=== PATIENT | female | born 1985 | race American Indian/Alaskan Native ===

== ENCOUNTER 2017-03-04 09:37 | Emergency (ER) | payer OTHER ==
[2017-03-04 09:46] VITALS: BP 132/77
[2017-03-04] MEDS ORDERED: TYLENOL PO ONE (10:48)
--- NOTE | 2017-03-04 10:49 | Emergency Department Report ---
HPI - General Chief Complaint: Sore Throat Time Seen by Provider: 03/04/17 10:46 - HPI HPI: Patient is a 31-year-old female who presents to ED complaining of throat pain 2 days. Patient describes pain as throbbing in nature, 8 out of 10 intensity, nonradiating, localized to his throat. Patient admits no appetite due to throat pain. Patient admits dry, nonproductive cough. Patient admits fever . Patient denies nausea/vomiting/abdominal pain/shortness of breath/chest pain/ headache. ED Past Medical Hx - Past Medical History Previous Medical History?: No Additional medical history: denies - Surgical History Past Surgical History?: No Additional Surgical History: denies - Social History Smoking Status: Never Smoker Substance Use Type: None - Medications Home Medications: Home Medications Medication Instructions Recorded Confirmed Last Taken Type Cyclobenzaprine [Flexeril] 10 mg PO TID PRN #15 tablet 01/21/13 Unknown Rx Hydrocodone Bit/Acetaminophen 1 each PO Q4-6H #15 tablet 01/21/13 Unknown Rx [Lortab 5-500 Tablet] Fluticasone Propionate [Flonase] 100 mcg NS QDAY #1 spray.susp 09/08/13 Unknown Rx Acetamin/Codeine 120-12Mg/5 ml 5 ml PO TID PRN #60 ml 03/04/17 Unknown Rx [Tylenol/Codeine] Ibuprofen [Motrin 800 MG tab] 800 mg PO TID PRN #30 tablet 03/04/17 Unknown Rx ED Review of Systems ROS: Stated complaint: SORE THROAT, COUGHING Other details as noted in HPI Constitutional: denies: chills, fever Eyes: denies: eye pain, eye discharge, vision change ENT: throat pain. denies: ear pain, dental pain, hearing loss, congestion Respiratory: cough. denies: shortness of breath, wheezing Cardiovascular: denies: chest pain, palpitations Endocrine: no symptoms reported Gastrointestinal: denies: abdominal pain, nausea, diarrhea Genitourinary: denies: urgency, dysuria, discharge Musculoskeletal: denies: back pain, joint swelling, arthralgia Skin: denies: rash, lesions Neurological: denies: headache, weakness, paresthesias Psychiatric: denies: anxiety, depression Hematological/Lymphatic: denies: easy bleeding, easy bruising Physical Exam - Physical Exam Vital Signs: Vital Signs 03/04/17 09:42 Temperature 100.5 F H Pulse Rate 92 H Respiratory 20 Rate Blood Pressure 132/77 O2 Sat by Pulse 96 Oximetry Physical Exam: GENERAL: Alert and oriented x3, no apparent distress, Normal Gait, atraumatic. HEAD: Head is normocephalic and a-traumatic. EYES: Extra ocular muscles are intact. Pupils are equal, round, and reactive to light and accommodation. EARS: symetrical, atraumatic, non tender, ear canal clear and moderate cerumen, tympanic membrance non inflamed. gross auditory nml bilaterally. NOSE: Nose symetrical, Nontender,Nares appeared normal. MOUTH:Mouth is well hydrated and without lesions. Tonsils nonerythematous or swollen, Uvula midline, Tongue not elevated. Mucous membranes are moist. Posterior pharynx clear, no exudate or lesions. Patent airways. NECK: Supple. Non edematous, No lymphadenopathy or thyromegaly. LUNGS: Symetrical with respiration, No wheezing, no rales or crackles, CTAB. HEART: S1, S2 present, regular rate and rhythm without murmur, no rubs, no gallops. Non tender to palpation ABDOMEN: No organomegaly was noted,Positive bowel sounds, soft, and non- distended. . Nontender to palpation on all Quadrants, NO CVA tenderness. SKIN: Warm and dry, No lesions, No ulceration or induration present. ED Course Vital Signs 03/04/17 09:42 Temperature 100.5 F H Pulse Rate 92 H Respiratory 20 Rate Blood Pressure 132/77 O2 Sat by Pulse 96 Oximetry ED Medical Decision Making - Medical Decision Making 31-year-old female presents with pharyngitis ED course: Rapid strep tests ordered rapid strep test negative Patient received 1 dose of Tylenol, suppressant. Fever responsive to one dose of Tylenol. Vital signs stable patient is in no acute or respiratory distress. Discussed findings with patient about the negative strep test. Discussed treatment in ED with patient I discussed with the patient to continue symptomatic relief with over-the- counter medication as well as medication as prescribed for cough suppressant Discussed continue with Tylenol or Motrin as needed for fever. Discussed the patient to stay hydrated, start taking some vitamin C for immunity boost Discussed with patient follow-up with primary care physician. Patient verbally states she understands and will comply to follow-up. The patient is symptoms worsen to return to ED Critical care attestation.: If time is entered above; I have spent that time in minutes in the direct care of this critically ill patient, excluding procedure time. ED Disposition Clinical Impression: Bronchitis Pharyngitis Qualifiers: Pharyngitis/tonsillitis etiology: unspecified etiology Qualified Code(s): J02.9 - Acute pharyngitis, unspecified Disposition: TO HOME OR SELFCARE Is pt being admited?: No Does the pt Need Aspirin: No Condition: Stable Instructions: Cold Symptoms (ED), Pharyngitis (ED), Upper Respiratory Infection (ED), Acute Bronchitis (ED) Additional Instructions: Increase hydration, take vitamin C daily for boost of immunity Take symptomatic [id number] medications. Symptoms worsen or fever increase is please return to ED Take Motrin or Tylenol as needed for pain. U cane use [id number] lozenges for Throat relief Prescriptions: Acetamin/Codeine 120-12Mg/5 ml [Tylenol/Codeine] 5 ml PO TID PRN #60 ml PRN Reason: Pain Ibuprofen [Motrin 800 MG tab] 800 mg PO TID PRN #30 tablet PRN Reason: Pain Referrals: PRIMARY CARE, [Primary Care Provider] - 3-5 Days [facility] [Outside] - 3-5 Days [facility] [Outside] - 3-5 Days [facility] [Outside] - 3-5 Days Forms: Accompanied Note, Work/School Release Form(ED) Time of Disposition: 11:49
[2017-03-04] MEDS ORDERED: ROBITUSSIN PO ONE (11:28)
== END 2017-03-04 12:44 | disposition home or self-care (01) ==
LOC: ED 09:37
DX: J40 Bronchitis, not specified as acute or chronic (principal); J02.9 Acute pharyngitis, unspecified
CPT/HCPCS: 87116; 87430; 99282

== ENCOUNTER 2017-09-06 20:57 | Emergency (ER) | payer OTHER ==
[2017-09-06 21:20] VITALS: BP 118/76
[2017-09-07] MEDS ORDERED: TORADOL IM ONE (00:18)
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
== END 2017-09-07 00:45 | disposition home or self-care (01) ==
LOC: ED 20:57
DX: S39.92XA Unspecified injury of lower back, initial encounter (principal); M25.512 Pain in left shoulder; V89.2XXA Person injured in unspecified motor-vehicle accident, traffic, initial encounter; Y93.89 Activity, other specified; Y92.89 Other specified places as the place of occurrence of the external cause; Y99.8 Other external cause status
CPT/HCPCS: 96372; 99282; J1885

== ENCOUNTER 2018-09-17 10:25 | Emergency (ER) | payer OTHER ==
[2018-09-17 10:34] VITALS: BP 116/41
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
== END 2018-09-17 11:29 | disposition home or self-care (01) ==
LOC: ED 10:25
DX: R51 Headache (principal); Z77.098 Contact with and (suspected) exposure to other hazardous, chiefly nonmedicinal, chemicals
CPT/HCPCS: 99281